=== PATIENT | male | born 1955 | race Caucasian/White ===

== ENCOUNTER 2024-12-19 11:15 | Emergency (ER) | payer OTHER, SELFPAY ==
[2024-12-19 11:36] VITALS: BP 116/77; PULSE 83; RESP 18; TEMP 37.4; O2SAT 97; BMI 29.2
--- NOTE | 2024-12-19 11:52 | DI.RAD.S_ITS ---
PROCEDURE: XR CHEST 2V INDICATIONS: Short of breath TECHNIQUE: 2 views of the chest were acquired. COMPARISON: None. FINDINGS: Surgical changes and devices: A pacer device is seen. Lungs and pleura: Lungs are clear. No pleural effusions or pneumothorax. Mediastinum: Mediastinal contours are normal. Heart size is normal. Bones and chest wall: No suspicious bony abnormalities. Age-appropriate bony degenerative changes are seen. Soft tissues appear unremarkable. IMPRESSION: No imaging explanation is found for this patient's presenting symptoms. Postoperative and degenerative changes are seen. Dictated by: Sterling Torres M.D. on 12/19/2024 at 12:08 Approved by: Sterling Torres M.D. on 12/19/2024 at 12:09
--- NOTE | 2024-12-19 11:59 | ED.EXTPRO ---
HPI - Extremity Problem General Chief complaint: Shortness of Breath/Dyspnea Stated complaint: Left leg pain Time Seen by Provider: 12/19/24 11:52 Source: patient Mode of arrival: Ambulatory Limitations: no limitations History of Present Illness HPI Narrative: 69-year-old male patient with a history of hypertension, BPH and a pacemaker placed who has had worsening left lower leg swelling and pain over 1 week. He was seen at urgent care 4 days ago and had a venous duplex of the left lower extremity which showed no DVT. He has experienced increasing swelling and some erythema. He had some chills last night but no documented fever. He has had occasional shortness of breath but not persistent. No cough or chest pain. MD Complaint: extremity pain and extremity swelling Onset (ago): week(s) (1 week) Related Data Home Medications ?Medication ?Instructions ?Recorded ?Confirmed albuterol sulfate 90 mcg/actuation 2 puff inhalation Q6H PRN 09/13/24 12/19/24 aerosol inhaler alfuzosin 10 mg tablet,extended 10 mg PO DAILY 09/13/24 12/19/24 release 24 hr cholecalciferol (vitamin D3) 25 25 mcg PO DAILY 09/13/24 12/19/24 mcg (1,000 unit) capsule finasteride 5 mg tablet 5 mg PO DAILY 09/13/24 12/19/24 lisinopril 2.5 mg tablet 2.5 mg PO DAILY 09/13/24 12/19/24 melatonin 5 mg tablet 5 mg PO BEDTIME PRN 09/13/24 12/19/24 metoprolol succinate 25 mg 25 mg PO DAILY 09/13/24 12/19/24 tablet,extended release 24 hr omeprazole 20 mg capsule,delayed 20 mg PO DAILY 09/13/24 12/19/24 release rosuvastatin 10 mg tablet 10 mg PO DAILY 09/13/24 12/19/24 Previous Rx's ?Medication ?Instructions ?Recorded sertraline 100 mg tablet 150 mg (1.5 x 100 mg) PO DAILY 11/10/24 #135 tabs hydrocodone 5 mg-acetaminophen 325 1 tab PO Q8H PRN pain #10 tabs 12/19/24 mg tablet hydrocodone 5 mg-acetaminophen 325 1 tab PO Q8H PRN pain #10 tabs 12/19/24 mg tablet Allergies Allergy/AdvReac Type Severity Reaction Status Date / Time montelukast AdvReac Intermediate Diarrhea Verified 12/19/24 10:49 Review of Systems Review of Systems Narrative: GENERAL: Denies chills, fatigue, malaise, fever, sweats. HEENT: Denies sinus pain, ear pain, sore throat, difficulty swallowing, dizziness. RESPIRATORY: See HPI. Denies cough, wheezing, hemoptysis, sputum. CARDIOVASCULAR: Denies chest pain, palpitations, orthopnea, edema, GASTROINTESTINAL: Denies nausea, vomiting, abdominal pain, diarrhea, constipation, melena. : Denies dysuria, frequency, incontinence, hematuria, urinary retention. MUSCULOSKELETAL: See HPI. Otherwise denies weakness, joint pain, or bony pain SKIN: Denies rash, skin lesions, or other NEUROLOGIC: Denies weakness, headache, numbness, change in speech, confusion, seizures, incoordination. PSYCHIATRIC: No concerning psychosocial issues. 12 point review of systems is negative except for those stated above Patient History Medical History (Updated 12/19/24 @ 18:42 by Ramiro Gonzalez MD) Wears glasses Actinic keratosis (~2023) Asthma (~1991) Allergies (~1964) Depression (~1997) History of elevated PSA (~2014) Tremor HLD (hyperlipidemia) GERD (gastroesophageal reflux disease) (~2017) Pacemaker (~2022) HTN (hypertension) Surgical History (Updated 10/02/24 @ 20:22 by Sejal Bucio) Anesthesia S/P placement of cardiac pacemaker (~08/2022) Family History (Updated 10/02/24 @ 20:23 by Sejal Bucio) Father Cancer History of heart disease Hyperlipidemia Mother Hyperlipidemia Social History Smoking Status: Smoker, status unknown Smoking Status: Smoker, status unknown Alcohol type: beer Exam Narrative Exam Narrative: GENERAL: 69 year old patient appears stated age. Well-developed patient, in mild distress. HEAD: Atraumatic. Normocephalic. EYES: Pupils equal round and reactive. Extraocular motions intact. No scleral icterus. No injection or drainage. CARDIOVASCULAR: Regular rate and rhythm without murmurs, gallops, or rubs. RESPIRATORY: Clear to auscultation. Breath sounds equal bilaterally. No wheezes, rales, or rhonchi. GASTROINTESTINAL: Abdomen soft, non-tender, nondistended. EXTREMITIES: Left calf swelling and tenderness with warmth but no erythema. Right calf measures 41 cm. Left calf measures 46 cm NEURO: AOx3. SKIN: No rash or erythema of visible areas Initial Vital Signs Initial Vital Signs: Vital Signs Temperature 99.3 F 12/19/24 11:36 Pulse Rate 83 12/19/24 11:36 Respiratory Rate 18 12/19/24 11:36 Blood Pressure 116/77 12/19/24 11:36 Pulse Oximetry 97 12/19/24 11:36 Oxygen Delivery Method Room Air 12/19/24 11:36 Course Orders Ordered: ED Orders 12/19/24 11:50 D Dimer Stat 12/19/24 11:52 CXR [XR chest 2V] Stat 12/19/24 11:55 Complete Blood Count AUTO DIFF Stat Comprehensive Metabolic Panel Stat Lactate (Lactic Acid) Stat 12/19/24 15:59 US periph venous low extrem lt Stat Vital Signs Vital signs: Vital Signs - 8 hr 12/19/24 11:36 12/19/24 15:00 12/19/24 15:43 Temperature 99.3 F Pulse Rate 83 74 Pulse Rate [Left Dorsalis Pedis] 78 Respiratory Rate 18 15 Blood Pressure 116/77 128/75 Pulse Oximetry 97 97 Oxygen Delivery Method Room Air Room Air MDM - Extremity (Nontraumatic) Lab Data 12/19/24 11:55 12/19/24 11:55 Labs: Lab Results 12/19/24 12/19/24 Range/Units 11:50 11:55 WBC 11.3 H (4.5-11.0) X10^3/uL RBC 4.14 L (4.5-5.9) X10^6/uL Hgb 13.1 L (13.5-17.5) g/dL Hct 37.9 L (41-53) % MCV 91.5 (80-100) fL MCH 31.7 (26-34) PG MCHC 34.6 (30-36) % RDW 13.6 (11.6-14.8) % Plt Count 174 (150-400) X10^3/uL Neut % (Auto) 63.8 (50-75) % Lymph % (Auto) 21.8 L (25-40) % Garden % (Auto) 12.7 (3-14) % Eos % (Auto) 1.3 L (2-4) % Baso % (Auto) 0.4 (0-2) % Neut # (Auto) 7200 H (4416-3781) /uL Lymph # (Auto) 2500 (0894-8422) /uL Garden # (Auto) 1400 H (0-900) /uL Eos # (Auto) 200 (0-450) /uL Baso # (Auto) 0 (0-100) /uL D-Dimer 924 H (<500) ng/ml Sodium 137 (137-145) mmol/L Potassium 4.3 (3.4-5.1) mmol/L Chloride 103 (98-107) mmol/L Carbon Dioxide 23 (22-32) mmol/L BUN 17 (9-20) mg/dL Creatinine 0.84 (0.66-1.25) mg/dL Estimated GFR > 60 (>60) mL/min BUN/Creatinine Ratio 20.2 (6-22) Glucose 99 (70-99) mg/dL Lactate 1.0 (0.7-2.1) mmol/L Calcium 9.1 (8.4-10.2) mg/dL Total Bilirubin 0.6 (0.2-1.3) mg/dL AST 19 (17-59) IU/L ALT 17 (<50) IU/L Alkaline Phosphatase 68 (38-126) U/L Total Protein 7.8 (6.3-8.2) g/dL Albumin 4.8 (3.5-5.0) g/dL Globulin 3.0 (1.7-4.1) g/dL Albumin/Globulin Ratio 1.6 (1.0-2.8) Imaging Data Chest x-ray: Attestation: I personally reviewed and interpreted this imaging study as follows: (Unremarkable. No acute disease) US - DVT: Radiologist's Impression: IMPRESSION: No findings of lower extremity deep venous thrombosis. Suspected large popliteal cyst measuring approximately 14.5 x 2.4 x 2.3 cm. [facility] Narrative Medical decision making narrative: 18:35 I discussed the patient's care with Dr. Page, orthopedics who agrees to have the patient follow-up as an outpatient to possibly aspirate the fluid collection/cyst. Patient will use elevation, cold packs and ibuprofen in the meantime. Follow up with primary care or Orthopedics. Patient has a large left Bourgeois's cyst which is probably ruptured and fluid is collecting distally. No DVT or infection. Discharge Plan Departure Patient Disposition: Home Clinical Impression: Ruptured Bakers cyst Instructions: DI for Bourgeois Cyst Activity Restrictions/Additional Instructions: Plan: Cold packs, elevation, ibuprofen 400-600 mg up to 4 times a day. Hydrocodone. Follow-up with orthopedics within 1 week for reassessment and possible drainage Prescriptions: New hydrocodone-acetaminophen 5-325 mg tablet 1 tab PO Q8H PRN (Reason: pain) Qty: 10 0RF hydrocodone-acetaminophen 5-325 mg tablet 1 tab PO Q8H PRN (Reason: pain) Qty: 10 0RF No Action albuterol sulfate 90 mcg/actuation HFA aerosol inhaler 2 puff inhalation Q6H PRN alfuzosin 10 mg tablet extended release 24 hr 10 mg PO DAILY Rx Instructions: administer after the same meal each day cholecalciferol (vitamin D3) 25 mcg (1,000 unit) capsule 25 mcg PO DAILY finasteride 5 mg tablet 5 mg PO DAILY lisinopril 2.5 mg tablet 2.5 mg PO DAILY melatonin 5 mg tablet 5 mg PO BEDTIME PRN metoprolol succinate 25 mg tablet extended release 24 hr 25 mg PO DAILY omeprazole 20 mg capsule,delayed release(DR/EC) 20 mg PO DAILY rosuvastatin 10 mg tablet 10 mg PO DAILY sertraline 100 mg tablet 150 mg PO DAILY Qty: 135 2RF Referrals: Monica Ibrahim MD [Primary Care Provider, Family Practice] Stand Alone Forms: Patient Portal/API
[2024-12-19 12:08] LABS: Add Manual Diff / Slide Review NO; Hematocrit 37.9 % (41-53); Hemoglobin 13.1 g/dL (13.5-17.5); Lymphocytes Absolute Auto 2500 /uL (1100-4500); Mean Corpuscular HGB Conc 34.6 % (30-36); Mean Corpuscular Hemoglobin 31.7 PG (26-34); Mean Corpuscular Volume 91.5 fL (80-100); Platelet Count 174 X10^3/uL (150-400)
[2024-12-19 12:21] LABS: Alanine Aminotransferase 17 IU/L (<50); Albumin 4.8 g/dL (3.5-5.0); Albumin Globulin Ratio 1.6 (1.0-2.8); Alkaline Phosphatase 68 U/L (38-126); Blood Urea Nitrogen 17 mg/dL (9-20); Calcium 9.1 mg/dL (8.4-10.2); Carbon Dioxide 23 mmol/L (22-32); Chloride 103 mmol/L (98-107); Estimated Glomerular Filt Rate > 60 mL/min (>60); Globulin 3.0 g/dL (1.7-4.1); Glucose 99 mg/dL (70-99); HEMOLYSIS < 15 (0-50); Potassium 4.3 mmol/L (3.4-5.1); Sodium 137 mmol/L (137-145); Total Protein 7.8 g/dL (6.3-8.2)
[2024-12-19 12:22] LABS: Lactate (Lactic Acid) 1.0 mmol/L (0.7-2.1)
[2024-12-19 15:00] VITALS: BP 128/75; PULSE 74; RESP 15; O2SAT 97
[2024-12-19 15:43] VITALS: PULSE 78
--- NOTE | 2024-12-19 15:59 | DI.US.S_ITS ---
PROCEDURE: US PERIPH VENOUS LOW EXTREM LT INDICATIONS: DVT symptoms with elevated D-dimer TECHNIQUE: Real-time imaging, as well as color and pulse Doppler interrogation, were performed of the lower extremity deep veins from the inguinal ligament to the popliteal fossa, with documentation of the visualized calf veins. COMPARISON: None. FINDINGS: The common femoral, femoral, popliteal, and the visualized calf veins are normally compressible, and free of intraluminal thrombus. Color and pulse Doppler demonstrate normal phasic intraluminal flow. There is normal augmentation response to distal compression maneuver. There is a large fluid pocket noted posterior to the left knee extending distally. This measures approximately 14.5 x 2.4 x 2.3 cm. IMPRESSION: No findings of lower extremity deep venous thrombosis. Suspected large popliteal cyst measuring approximately 14.5 x 2.4 x 2.3 cm. Dictated by: David Edwards M.D. on 12/19/2024 at 17:15 Approved by: David Edwards M.D. on 12/19/2024 at 17:16
[2024-12-19 18:59] VITALS: BP 118/73; PULSE 86; RESP 18; TEMP 37.3; O2SAT 97
== END 2024-12-19 19:03 | disposition home or self-care (01) ==
PROVIDERS: Emergency Provider Emergency Medicine; PCP Family Medicine
DX: M66.0 Rupture of popliteal cyst (principal)
CPT/HCPCS: 36415; 71046; 80053; 83605; 85025; 85379; 93971; 99283; 99284